=== PATIENT | female | born 1955 | race American Indian/Alaskan Native ===

== ENCOUNTER 2017-08-27 15:00 | Emergency (ER) | payer MEDICARE ==
[2017-08-27 16:19] LABS: Hematocrit 40.1 % (30.3-42.9); Hemoglobin 12.7 gm/dl (10.1-14.3); Mean Corpuscular HGB Conc 32 % (30-34); Mean Corpuscular Hemoglobin 27 pg (28-32); Mean Corpuscular Volume 85 fl (79-97); Platelet Count 245 K/mm3 (140-440); Red Blood Count 4.73 M/mm3 (3.65-5.03); Red Cell Distribution Width 17.6 % (13.2-15.2)
[2017-08-27 16:39] LABS: BUN/Creatinine Ratio 11; Blood Urea Nitrogen 9 mg/dL (7-17); Calcium 8.6 mg/dL (8.4-10.2); Hemolysis Index 5
--- NOTE | 2017-08-27 16:51 | XRay Report ---
FINAL REPORT EXAM: XR CHEST ROUTINE 2V HISTORY: Shortness of breath TECHNIQUE: Two view chest PA and lateral PRIORS: None. FINDINGS: Cardiac and mediastinal contours are unremarkable. No focal pulmonary infiltrate is identified. No pleural fluid collection seen. Pulmonary vasculature is unremarkable. There is left PICC line catheter tip at the SVC. IMPRESSION: PICC line in satisfactory position No acute abnormality seen in the chest
[2017-08-27 16:59] LABS: Basophils % (Manual) 0 % (0.0-1.8); Total Cells Counted 100
[2017-08-27 17:00] LABS: Anisocytosis 1+; Target Cells Few
[2017-08-28] MEDS ORDERED: MORPHINE IV ONE (05:17)
[2017-08-28] MEDS ORDERED: TORADOL IV ONE (05:18)
--- NOTE | 2017-08-28 06:36 | Emergency Department Report ---
<OFELIA BINGHAM - Last Filed: 08/28/17 05:00> ED Shortness of Breath HPI - General Chief Complaint: Dyspnea/Respdistress Stated Complaint: FLU LIKE SYMPTOMS Time Seen by Provider: 08/28/17 04:55 Source: patient Mode of arrival: Ambulatory Limitations: Physical Limitation - History of Present Illness Initial Comments: 61-year-old female with chief complaint of nausea vomiting diarrhea productive cough and shortness of breath since May 2017. According to the patient, her coughing has gotten so severe that it hurts when she breathes and hurts her buttocks and hurts her right hip and right leg. She has a history of lymphoma and is being treated with chemotherapy. She has a past medical history of lymphoma, diabetes type 2, hypertension, depression, pneumonia, bronchitis, hypothyroidism, MD Complaint: shortness of breath (short of breath since May), cough -: Gradual, month(s) (since May, that is 4 months) Severity: moderate Pain Scale: 10 Quality: aching Consistency: intermittent Improves With: rest, other (not coughing) Worsens With: movement, coughing Context: recent URI - Related Data Home Medications Medication Instructions Recorded Confirmed Last Taken Aspirin [Adult Low Dose Aspirin EC] 81 mg PO DAILY 11/18/16 08/28/17 11/18/16 Carvedilol [Coreg] 12.5 mg PO BID 11/18/16 08/28/17 11/18/16 FLUoxetine [PROzac] 20 mg PO TID 11/18/16 08/28/17 11/18/16 Levothyroxine [Synthroid] 50 mcg PO QAM 11/18/16 08/28/17 11/18/16 Amlodipine Besylate [Norvasc] 5 mg PO DAILY 08/28/17 08/28/17 Unknown Gabapentin [Neurontin] 300 mg PO DAILY 08/28/17 08/28/17 Unknown Previous Rx's Medication Instructions Recorded Last Taken Type ALBUTEROL Inhaler [Proair] 2 puff IH QID PRN #1 inhalation 08/28/17 Unknown Rx Azithromycin [Zithromax Z-CARLOS] 1 dose PO DAILY 5 Days tab 08/28/17 Unknown Rx oxyCODONE /ACETAMINOPHEN [Percocet 1 tab PO Q6HR PRN #14 tablet 08/28/17 Unknown Rx 5/325] Allergies Allergy/AdvReac Type Severity Reaction Status Date / Time MOMO Inhibitors Allergy Unknown Verified 08/27/17 23:53 Sulfa (Sulfonamide Allergy Vomiting Verified 11/17/16 20:21 Antibiotics) ED Review of Systems ROS: Stated complaint: FLU LIKE SYMPTOMS Other details as noted in HPI Respiratory: cough, shortness of breath Gastrointestinal: nausea, vomiting, diarrhea Musculoskeletal: arthralgia (right hip pain right leg pain) Skin: denies: rash, lesions Neurological: denies: headache, weakness Psychiatric: denies: anxiety, depression ED Past Medical Hx - Past Medical History Hx Hypertension: Yes Hx Congestive Heart Failure: No Hx Diabetes: Yes Hx Psychiatric Treatment: Yes (depression) Hx Asthma: No Hx COPD: No Hx HIV: No Additional medical history: PNEUMONIA / BRONCHITIS, lymphoma, hypothyroidism - Surgical History Additional Surgical History: LEFT PORT / RIGHT CHEST PORT REMOVED - Social History Smoking Status: Current Every Day Smoker Substance Use Type: None - Medications Home Medications: Home Medications Medication Instructions Recorded Confirmed Last Taken Type Aspirin [Adult Low Dose Aspirin EC] 81 mg PO DAILY 11/18/16 08/28/17 11/18/16 History Carvedilol [Coreg] 12.5 mg PO BID 11/18/16 08/28/17 11/18/16 History FLUoxetine [PROzac] 20 mg PO TID 11/18/16 08/28/17 11/18/16 History Levothyroxine [Synthroid] 50 mcg PO QAM 11/18/16 08/28/17 11/18/16 History ALBUTEROL Inhaler [Proair] 2 puff IH QID PRN #1 inhalation 08/28/17 Unknown Rx Amlodipine Besylate [Norvasc] 5 mg PO DAILY 08/28/17 08/28/17 Unknown History Azithromycin [Zithromax Z-CARLOS] 1 dose PO DAILY 5 Days tab 08/28/17 Unknown Rx Gabapentin [Neurontin] 300 mg PO DAILY 08/28/17 08/28/17 Unknown History oxyCODONE /ACETAMINOPHEN [Percocet 1 tab PO Q6HR PRN #14 tablet 08/28/17 Unknown Rx 5/325] ED Physical Exam - General Limitations: Physical Limitation General appearance: alert, in no apparent distress - Head Head exam: Present: atraumatic, normocephalic - Eye Eye exam: Present: normal appearance, EOMI - ENT ENT exam: Present: mucous membranes moist - Neck Neck exam: Present: normal inspection, full ROM - Respiratory Respiratory exam: Present: normal lung sounds bilaterally. Absent: respiratory distress - Cardiovascular Cardiovascular Exam: Present: regular rate, normal rhythm. Absent: systolic murmur, diastolic murmur, rubs, gallop - GI/Abdominal GI/Abdominal exam: Present: soft, normal bowel sounds - Extremities Exam Extremities exam: Present: normal inspection - Back Exam Back exam: Present: normal inspection - Neurological Exam Neurological exam: Present: alert, oriented X3 - Psychiatric Psychiatric exam: Present: normal affect, normal mood - Skin Skin exam: Present: warm, dry, intact, normal color. Absent: rash ED Course Vital Signs 08/27/17 08/27/17 08/28/17 15:42 22:21 00:16 Temperature 98.9 F 98.1 F 98.2 F Pulse Rate 96 H 116 H 109 H Pulse Rate [ Anterior Bilateral Throughout] Respiratory 18 18 20 Rate Respiratory Rate [Anterior Bilateral Throughout] Blood Pressure 163/93 178/100 Blood Pressure 141/92 [Right] O2 Sat by Pulse 95 100 96 Oximetry 08/28/17 08/28/17 08/28/17 04:24 04:25 04:30 Temperature Pulse Rate 107 H Pulse Rate [ Anterior Bilateral Throughout] Respiratory 13 12 18 Rate Respiratory Rate [Anterior Bilateral Throughout] Blood Pressure Blood Pressure 129/80 [Right] O2 Sat by Pulse 95 97 95 Oximetry 08/28/17 08/28/17 08/28/17 05:00 05:30 06:00 Temperature Pulse Rate 96 H 102 H Pulse Rate [ Anterior Bilateral Throughout] Respiratory 15 18 15 Rate Respiratory Rate [Anterior Bilateral Throughout] Blood Pressure 138/91 118/73 Blood Pressure [Right] O2 Sat by Pulse 95 96 97 Oximetry 08/28/17 08/28/17 08/28/17 06:20 06:53 07:00 Temperature Pulse Rate 107 H Pulse Rate [ Anterior Bilateral Throughout] Respiratory 16 20 Rate Respiratory Rate [Anterior Bilateral Throughout] Blood Pressure 118/73 123/69 Blood Pressure [Right] O2 Sat by Pulse 98 94 95 Oximetry 08/28/17 08/28/17 07:30 07:50 Temperature 98.4 F Pulse Rate 106 H Pulse Rate [ 104 H Anterior Bilateral Throughout] Respiratory 13 Rate Respiratory 19 Rate [Anterior Bilateral Throughout] Blood Pressure Blood Pressure 127/97 [Right] O2 Sat by Pulse 95 Oximetry - Reevaluation(s) Reevaluation #1: 08/28/17 07:11 All the results thus far were discussed with the patient. Her care has been transferred to Dr. Coronado will follow CA of the chest and also CT of the pelvis and lower extremity. Dr. Coronado will make the appropriate disposition based on the findings and the CT. ED Medical Decision Making - Lab Data Result diagrams: 08/27/17 16:05 08/27/17 16:05 - EKG Data -: EKG Interpreted by Me EKG shows normal: sinus rhythm, axis, intervals, QRS complexes, ST-T waves - Radiology Data Radiology results: report reviewed, image reviewed (chest x-ray: PICC line in appropriate position, rest negative) Critical care attestation.: If time is entered above; I have spent that time in minutes in the direct care of this critically ill patient, excluding procedure time. ED Disposition Clinical Impression: Acute exacerbation of chronic obstructive pulmonary disease (COPD), Tobacco abuse disorder, Morbid obesity, Thyroid nodule Acute bronchitis Qualifiers: Bronchitis organism: unspecified organism Qualified Code(s): J20.9 - Acute bronchitis, unspecified Disposition: DC-01 TO HOME OR SELFCARE Is pt being admited?: No Does the pt Need Aspirin: No Condition: Stable Instructions: How to Stop Smoking (ED), Acute Bronchitis (ED), Chronic Obstructive Pulmonary Disease (ED), Obesity (ED) Additional Instructions: Please follow up with your doctor within the next 2 days. Return to the emergency department if you have chest pain, shortness of breath, or your symptoms worsen. Please stop smoking. Please take your medication as prescribed. CAT scan of your chest incidentally noted that you have a 2.8 cm low density lesion in the left thyroid lobe. Outpatient ultrasound is recommended for further evaluation. Prescriptions: ALBUTEROL Inhaler [Proair] 2 puff IH QID PRN #1 inhalation PRN Reason: Shortness Of Breath Azithromycin [Zithromax Z-CARLOS] 1 dose PO DAILY 5 Days tab oxyCODONE /ACETAMINOPHEN [Percocet 5/325] 1 tab PO Q6HR PRN #14 tablet PRN Reason: Pain Referrals: PRIMARY CARE, [Primary Care Provider] - 3-5 Days [facility] [Outside] - 3-5 Days [facility] [Outside] - 3-5 Days Time of Disposition: 06:58 <FRANKY CORONADO - Last Filed: 08/28/17 09:28> ED Medical Decision Making - Lab Data Result diagrams: 08/27/17 16:05 08/27/17 16:05 - Medical Decision Making ct reports reviewed pt informed to follow up regarding thyroid nodule Discharge report provided as per Dr. Esteves's plan ED Disposition Is pt being admited?: No Does the pt Need Aspirin: No
[2017-08-28] MEDS ORDERED: ATROVENT IH ONE (07:03)
[2017-08-28] MEDS ORDERED: XOPENEX IH ONE (07:03)
--- NOTE | 2017-08-28 07:13 | Cat Scan Report ---
FINAL REPORT EXAM: CT ANGIO CHEST HISTORY: chest pain h/o lymphoma TECHNIQUE: A CT angiogram was performed following the intravenous injection of 150 cc of Omnipaque 350. Rotational, sagittal coronal MIP reconstructions were reviewed. FINDINGS: There is no evidence of pulmonary embolus or aortic dissection. The heart size is normal. Pericardial fluid is not identified. There is no evidence of hilar or mediastinal lymphadenopathy. At the thoracic inlet there is an indeterminate low-density left thyroid lesion measuring 2.8 cm in diameter. The right thyroid lobe appears normal. The lungs are clear. Pleural fluid is not seen. In the upper abdomen the adrenal glands appear normal. The skeletal structures reveal multilevel disc degeneration in the thoracic spine. IMPRESSION: No evidence of pulmonary embolus or aortic dissection. No acute process in the chest. No evidence of hilar or mediastinal lymphadenopathy. 2.8 cm low-density lesion in the left thyroid lobe. Further evaluation is recommended with outpatient thyroid sonography.
--- NOTE | 2017-08-28 07:46 | Cat Scan Report ---
FINAL REPORT EXAM: CT PELVIS W CON HISTORY: chest pain h/o lymphoma TECHNIQUE: Routine axial imaging was obtained of the pelvis following the intravenous injection of 150 cc of Omnipaque 350. Sagittal and coronal reconstructions were obtained. FINDINGS: There is no evidence of lymphadenopathy in the pelvis. The bowel loops are normal in caliber. There are few uncomplicated sigmoid diverticula. The uterus and bladder appear normal. Free fluid is not seen. The skeletal structures reveal multilevel disc degeneration in the lumbar spine. There is also mild arthritic changes of both hip joints. The bony pelvic ring otherwise appears intact IMPRESSION: No acute process in the pelvis. Uncomplicated sigmoid diverticula. No evidence of lymphadenopathy in the pelvis. Multilevel disc degeneration in the lower lumbar spine.
--- NOTE | 2017-08-28 08:37 | Cat Scan Report ---
CT LOWER EXTREMITY LEFT WITH CONTRAST CT LOWER EXTREMITY RIGHT WITH CONTRAST INDICATION: Chest pain. History of lymphoma. COMPARISON: None similar. FINDINGS: CT bilateral lower extremities performed in conjunction with chest PE protocol. Obtained angiographic phase images demonstrate patent iliac, femoral and superficial femoral arteries bilaterally with patent triple vessel runoff below the knees, extending to the foot. Bilateral knee and hip degenerative changes. Approximately 4 cm right lower thigh intramuscular lipoma posteriorly as on axial series 102, image 93, amongst others. Venous phase images not available. CONCLUSION: Patent bilateral lower extremity arteries and few other findings, including bilateral knee and hip degenerative changes. Please correlate. Thank you for the opportunity to participate in this patient's care.
[2017-08-28 10:18] VITALS: BP 105/70
== END 2017-08-28 10:20 | disposition home or self-care (01) ==
LOC: ED 15:00
DX: J44.1 Chronic obstructive pulmonary disease with (acute) exacerbation (principal); J20.9 Acute bronchitis, unspecified; E66.01 Morbid (severe) obesity due to excess calories; F17.200 Nicotine dependence, unspecified, uncomplicated; E04.1 Nontoxic single thyroid nodule; E11.9 Type 2 diabetes mellitus without complications; I10 Essential (primary) hypertension; F32.9 Major depressive disorder, single episode, unspecified; J18.9 Pneumonia, unspecified organism; Z88.2 Allergy status to sulfonamides; Z88.8 Allergy status to other drugs, medicaments and biological substances
CPT/HCPCS: 36415; 71046; 71275; 72193; 73701; 80048; 83880; 84484; 85007; 85025; 93005; 93010; 94640; 96374; 96375; 99285; J1885; J2270; Q9967